=== PATIENT | male | born 2000 | race Caucasian/White ===

== ENCOUNTER 2021-01-16 05:19 | Day surgery (SDC) | payer OTHER ==
[2021-01-15 11:26] VITALS: BMI 30.8
[2021-01-16] MEDS ORDERED: MIDAZOLAM HCL 2 MG/2 ML SINGLE DOSE VIAL ONE ×3 (11:11→12:12)
[2021-01-16] MEDS ORDERED: BUPIVACAINE LIPOSOME/PF (EXPAREL) 266 MG/20 ML VIAL ONE (11:11)
[2021-01-16] MEDS ORDERED: BUPIVACAINE HCL/PF 0.25% (2.5MG/ML) 10 ML VIAL ONE (11:11)
[2021-01-16] MEDS ORDERED: SUCCINYLCHOLINE CHLORIDE 200 MG/10 ML SYRINGE ONE (12:12)
[2021-01-16] MEDS ORDERED: PROPOFOL 20 ML ONE ×2 (12:12)
[2021-01-16] MEDS ORDERED: ceFAZolin 2 GRAM PREMIX BAG IVPB ONE ×2 (12:52→14:26)
[2021-01-16] MEDS ORDERED: LACTATED RINGERS SOLUTION 1,000 ML IV SCH (15:15)
[2021-01-16] MEDS ORDERED: ONDANSETRON 4 MG/2 ML VIAL IVPUSH PRN (15:15)
[2021-01-16] MEDS ORDERED: oxyCODONE HCL 5 MG TABLET PO PRN (15:15)
[2021-01-16] MEDS ORDERED: ceFAZolin SODIUM 1 GM VIAL ONE ×2 (16:32→16:33)
[2021-01-16 18:36] VITALS: BP 123/72; PULSE 52; TEMP 97.2
== END 2021-01-16 18:00 | disposition home or self-care (01) ==
LOC: JASU-SURG 05:19
PROVIDERS: ATTEND Orthopaedic Surgery
PROC: 0MRN47Z Replacement of Right Knee Bursa and Ligament with Autologous Tissue Substitute, Percutaneous Endoscopic Approach (ICD-10-PCS; principal; 2021-01-16 12:00)
DX: S83.511A Sprain of anterior cruciate ligament of right knee, initial encounter (principal); X58.XXXA Exposure to other specified factors, initial encounter; Y93.9 Activity, unspecified; Y92.9 Unspecified place or not applicable; Y99.9 Unspecified external cause status
CPT/HCPCS: 29888; C1713; 94760